=== PATIENT | female | born 1965 | race African-American/Black ===

== ENCOUNTER 2016-10-27 07:40 | Outpatient (CLI) | payer BC, MEDICAID, OTHER ==
[2016-10-27 08:28] LABS: #Basophils 0.1 thou/uL (0.0-0.2); #Eosinphils 0.1 thou/uL (0.0-0.7); #Lymphocytes 2.3 thou/uL (1.20-3.40); #Monocytes 0.5 thou/uL (0.11-0.59); #Neutrophils 3.5 thou/uL (1.40-6.50); %Basophils 1.2 % (0.0-1.0); %Eosinophils 2.1 % (0.0-10.0); %Lymphocytes 35.6 % (21.0-51.0); %Monocytes 7.3 % (0.0-10.0); %Neutrophils 53.7 % (42.0-75.0); Hemoglobin 13.1 g/dL (12.0-16.0); Mean Corpuscular HGB CONC 32.8 g/dL (32.0-36.0); Mean Corpuscular Hemoglobin 28.5 pg (27.0-31.0); Mean Corpuscular Volume 87.1 fl (81.0-99.0); Mean Platelet Volume 7.3 fL (7.4-10.4); Platelet Count 261 thou/uL (130-400); RBC Distribution Width 12.6 % (11.5-14.5); White Blood Cell (WBC) Count 6.4 thou/uL (4.8-10.8)
[2016-10-27 08:35] LABS: Hemoglobin A1c 6.9 % (4.0-6.0)
[2016-10-27 08:48] LABS: ALT (SGPT) 17 U/L (8-55); AST (SGOT) 17 U/L (5-34); Alkaline Phosphatase 90 U/L (40-150); Anion Gap 17 mmol/L (10-20); BUN (Urea Nitrogen) 10 mg/dL (9.8-20.1); Bilirubin, Total 0.5 mg/dL (0.2-1.2); Calc. Creatinine Clearance 0 mL/min (70-130); Calcium 9.9 mg/dL (7.8-10.44); Carbon Dioxide 23 mmol/L (22-29); Chloride 104 mmol/L (98-107); Cholesterol 201 mg/dl (< 200 Desired); Estimated GFR-MDRD Greater than 90; Globulin 3.3 g/dL (2.4-3.5); Glucose 148 mg/dL (70-105); HDL Cholesterol 50 mg/dL (>60 Neg Risk); LDL Cholesterol, Calculated 130 mg/dL; Potassium 3.7 mmol/L (3.5-5.1); Protein, Total 7.3 g/dL (6.0-8.3); Sodium 140 mmol/L (136-145); Triglycerides 104 mg/dL (Less than 150)
[2016-10-27 18:27] LABS: Creatinine, Urine 209.97 mg/dL (47-110); Microalbumin Urine Less than 1.0 mg/dL (0.5-50.0); Microalbumin/Creat Ratio 4.8 mg/g (Less than 30)
== END 2016-10-27 07:41 ==
LOC: MADLABBHPM 07:40
PROVIDERS: ATTEND Family Medicine
DX: E11.9 Type 2 diabetes mellitus without complications (principal)
CPT/HCPCS: 36415; 80053; 80061; 82043; 83036; 85025

== ENCOUNTER 2019-09-29 10:15 | Outpatient (CLI) | payer OTHER ==
--- NOTE | 2019-09-29 10:38 | RAD ---
PA AND LATERAL VIEWS CHEST: Date: 09/29/2019 HISTORY: Atypical chest pain. COMPARISON: 11/08/2015. FINDINGS: The heart size is normal. The aorta is tortuous. No focal areas of consolidation, pneumothoraces, or pleural effusions are seen. No acute osseous abnormalities are identified. IMPRESSION: No radiographic evidence of acute cardiopulmonary process. POS: [facility]
== END 2019-09-29 10:16 | disposition home or self-care (01) ==
LOC: MADRAD 10:15
PROVIDERS: ATTEND Family Medicine
DX: R07.89 Other chest pain (principal)
CPT/HCPCS: 71046

== ENCOUNTER 2021-10-24 17:12 | Emergency (ER) | payer BC ==
[2021-10-24] MEDS ORDERED: Cyclobenzaprine 10 MG TAB ONE (19:58)
[2021-10-24] MEDS ORDERED: Naproxen 500 MG TAB ONE (19:59)
== END 2021-10-24 20:03 | disposition home or self-care (01) ==
LOC: MADERS 17:12
DX: S39.012A Strain of muscle, fascia and tendon of lower back, initial encounter (principal); S39.011A Strain of muscle, fascia and tendon of abdomen, initial encounter; S80.02XA Contusion of left knee, initial encounter; W18.30XA Fall on same level, unspecified, initial encounter; Y99.0 Civilian activity done for income or pay; I10 Essential (primary) hypertension; E11.9 Type 2 diabetes mellitus without complications; F17.210 Nicotine dependence, cigarettes, uncomplicated
CPT/HCPCS: 72131; 72192

== ENCOUNTER 2022-02-25 20:53 | Emergency (ER) | payer BC ==
[2022-02-25] MEDS ORDERED: Sodium Chloride 0.9% 1,000 ML ONE (21:33)
[2022-02-25 21:35] LABS: #Basophils 0.1 thou/uL (0.0-0.2); #Eosinphils 0.1 thou/uL (0.0-0.7); #Lymphocytes 2.1 thou/uL (1.20-3.40); #Monocytes 0.3 thou/uL (0.11-0.59); #Neutrophils 3.4 thou/uL (1.40-6.50); %Basophils 1.9 % (0.0-1.0); %Eosinophils 2.1 % (0.0-10.0); %Monocytes 5.2 % (0.0-10.0); %Neutrophils 56.8 % (42.0-75.0); Hemoglobin 13.9 g/dL (12.0-16.0); Mean Corpuscular HGB CONC 33.1 g/dL (32.0-36.0); Mean Corpuscular Hemoglobin 29.5 pg (27.0-31.0); Mean Platelet Volume 8.3 fL (7.4-10.4); Platelet Count 310 thou/uL (130-400); RBC Distribution Width 12.7 % (11.5-14.5); Red Blood Cell (RBC) Count 4.71 mill/uL (4.20-5.40)
[2022-02-25 21:47] LABS: CO2 Tension (PvCO2) 40.6 mmHg (42.0-51.0)
[2022-02-25 21:48] LABS: Base Excess-Venous 0.3 mmol/L (-2.0 to 3.0); Bicarbonate (HCO3v) 25.2 mmol/L (22.0-28.0); Calcium, Ionized 1.16 mmol/L (1.15-1.33); Chloride 101 mmol/L (98-107); Hemoglobin - Calc 13.7 g/dL (12.0-16.0); Potassium 3.7 mmol/L (3.5-5.1); Sodium 139 mmol/L (138-145); T. Carbon Dioxide 26.4 mmol/L (22.0-28.0); vO2 Saturation-calc 92.1 % (60.0-85.0)
[2022-02-25 21:59] LABS: ALT (SGPT) 24 U/L (8-55); AST (SGOT) 23 U/L (5-34); Albumin 3.8 g/dL (3.5-5.0); Alkaline Phosphatase 106 U/L (40-110); Anion Gap 15 mmol/L (10-20); BUN (Urea Nitrogen) 13 mg/dL (9.8-20.1); Bilirubin, Total 0.5 mg/dL (0.2-1.2); Calc. Creatinine Clearance 0 mL/min (70-130); Calcium 10.1 mg/dL (7.8-10.44); Carbon Dioxide 24 mmol/L (22-29); Chloride 103 mmol/L (98-107); Estimated GFR 74; Globulin 3.4 g/dL (2.4-3.5); Glucose 330 mg/dL (70-105); Magnesium 1.7 mg/dL (1.6-2.6); Potassium 3.8 mmol/L (3.5-5.1); Protein, Total 7.2 g/dL (6.0-8.3); Sodium 138 mmol/L (136-145)
== END 2022-02-25 23:19 | disposition home or self-care (01) ==
LOC: MADERS 20:53
DX: E11.65 Type 2 diabetes mellitus with hyperglycemia (principal); I10 Essential (primary) hypertension; Z79.84 Long term (current) use of oral hypoglycemic drugs
CPT/HCPCS: 36416; 80053; 82330; 82803; 83735; 85025; 99284; J7050

== ENCOUNTER 2022-03-11 15:01 | Emergency (ER) | payer BC ==
[~2022-03-11 15:01] MED LIST: Iopamidol 370 76% 100 ML VIAL ONE
[2022-03-11] MEDS ORDERED: Lactated Ringer's 2,000 ML ONE (15:50)
[2022-03-11] MEDS ORDERED: Morphine 4 MG/ML VIAL ONE ×2 (15:50→17:35)
[2022-03-11] MEDS ORDERED: Dicyclomine 20 MG/2 ML VIAL ONE (15:50)
[2022-03-11] MEDS ORDERED: Ondansetron PF 4 MG/2 ML Vial ONE (15:50)
[2022-03-11 16:10] LABS: Eosinophils 1 % (0-10); Hemoglobin 16.2 g/dL (12.0-16.0); Lymphocytes 9 % (21-51); MDiff Complete? YES; Mean Corpuscular HGB CONC 32.1 g/dL (32.0-36.0); Mean Corpuscular Hemoglobin 28.4 pg (27.0-31.0); Mean Corpuscular Volume 88.5 fl (78.0-98.0); Monocytes 3 % (0-10); Neutrophil 87 % (42-75); Platelet Count 422 10x3/uL (130-400); Platelet Morphology Comment Appears Increased; RBC Distribution Width 12.3 % (11.5-14.5); RBC Morphology Normal; Red Blood Cell (RBC) Count 5.69 mill/uL (4.20-5.40); White Blood Cell (WBC) Count 11.9 10x3/uL (4.8-10.8)
[2022-03-11 16:13] LABS: ALT (SGPT) 18 U/L (8-55); AST (SGOT) 20 U/L (5-34); Albumin 4.4 g/dL (3.5-5.0); Alkaline Phosphatase 111 U/L (40-110); Anion Gap 18 mmol/L (10-20); BUN (Urea Nitrogen) 14 mg/dL (9.8-20.1); CK (CPK) 117 U/L (29-168); Calc. Creatinine Clearance 0 mL/min (70-130); Calcium 11.3 mg/dL (7.8-10.44); Carbon Dioxide 28 mmol/L (22-29); Chloride 94 mmol/L (98-107); Estimated GFR 65; Globulin 4.1 g/dL (2.4-3.5); Glucose 286 mg/dL (70-105); Lipase 11 U/L (8-78); Magnesium 1.9 mg/dL (1.6-2.6); Protein, Total 8.5 g/dL (6.0-8.3); Sodium 136 mmol/L (136-145)
[2022-03-11] MEDS ORDERED: Ondansetron PF 4 MG/2 ML Vial IVP PRN (21:15)
[2022-03-11] MEDS ORDERED: Ondansetron ODT 4 MG TAB SL PRN (21:15)
[2022-03-11] MEDS ORDERED: Lactated Ringer's 1,000 ML IV SCH (21:15)
== END 2022-03-11 20:01 | disposition short-term general hospital (02) ==
LOC: MADERS 15:01
DX: K56.609 Unspecified intestinal obstruction, unspecified as to partial versus complete obstruction (principal); E86.0 Dehydration; E11.65 Type 2 diabetes mellitus with hyperglycemia; R00.0 Tachycardia, unspecified; I10 Essential (primary) hypertension; Z79.84 Long term (current) use of oral hypoglycemic drugs; Z79.899 Other long term (current) drug therapy
CPT/HCPCS: 36416; 71045; 74177; 80053; 82550; 83605; 83690; 83735; 84443; 84484; 85025; 93005; 94760; 96372; 96374; 96375; 96376; J2270; J2405; J7120; Q9967

== ENCOUNTER 2022-07-16 09:43 | Emergency (ER) | payer OTHER ==
[2022-07-16] MEDS ORDERED: Ketorolac Tromethamine 60 MG/2 ML VIAL ONE (10:12)
== END 2022-07-16 11:50 | disposition home or self-care (01) ==
LOC: MADERS 09:43
DX: M54.50 Low back pain, unspecified (principal); E11.9 Type 2 diabetes mellitus without complications; I10 Essential (primary) hypertension; V40.0XXA Car driver injured in collision with pedestrian or animal in nontraffic accident, initial encounter; Z85.038 Personal history of other malignant neoplasm of large intestine; Z79.84 Long term (current) use of oral hypoglycemic drugs; Z79.4 Long term (current) use of insulin; Z79.899 Other long term (current) drug therapy
CPT/HCPCS: 72100; 96372; J1885

== ENCOUNTER 2022-10-13 04:10 | Emergency (ER) | payer OTHER ==
[2022-10-13] MEDS ORDERED: Dicyclomine 20 MG/2 ML VIAL ONE (04:48)
[2022-10-13 04:57] LABS: #Basophils 0.1 thou/uL (0.0-0.2); #Eosinphils 0.1 thou/uL (0.0-0.7); #Lymphocytes 1.7 thou/uL (1.20-3.40); #Monocytes 0.5 thou/uL (0.11-0.59); #Neutrophils 4.5 thou/uL (1.40-6.50); %Basophils 1.3 % (0.0-1.0); %Eosinophils 1.8 % (0.0-10.0); %Lymphocytes 24.4 % (21.0-51.0); %Monocytes 7.6 % (0.0-10.0); %Neutrophils 64.9 % (42.0-75.0); Hemoglobin 13.7 g/dL (12.0-16.0); Mean Corpuscular HGB CONC 32.5 g/dL (32.0-36.0); Mean Corpuscular Hemoglobin 29.6 pg (27.0-31.0); Mean Corpuscular Volume 91.2 fl (78.0-98.0); Mean Platelet Volume 8.9 fL (7.4-10.4); Platelet Count 302 10x3/uL (130-400); RBC Distribution Width 13.6 % (11.5-14.5); Red Blood Cell (RBC) Count 4.63 mill/uL (4.20-5.40)
[2022-10-13 05:14] LABS: ALT (SGPT) 19 U/L (8-55); AST (SGOT) 19 U/L (5-34); Alkaline Phosphatase 93 U/L (40-110); Anion Gap 14 mmol/L (10-20); BUN (Urea Nitrogen) 8 mg/dL (9.8-20.1); Bilirubin, Total 0.5 mg/dL (0.2-1.2); Calc. Creatinine Clearance 0 mL/min (70-130); Calcium 10.3 mg/dL (7.8-10.44); Carbon Dioxide 26 mmol/L (22-29); Chloride 102 mmol/L (98-107); Estimated GFR 77; Globulin 3.1 g/dL (2.4-3.5); Glucose 246 mg/dL (70-105); Lipase 8 U/L (8-78); Potassium 3.6 mmol/L (3.5-5.1); Protein, Total 7.1 g/dL (6.0-8.3); Sodium 138 mmol/L (136-145)
== END 2022-10-13 05:09 | disposition short-term general hospital (02) ==
LOC: MADERS 04:10
DX: R10.32 Left lower quadrant pain (principal); E11.9 Type 2 diabetes mellitus without complications; I10 Essential (primary) hypertension; Z79.899 Other long term (current) drug therapy; Z79.84 Long term (current) use of oral hypoglycemic drugs
CPT/HCPCS: 36415; 71045; 80053; 83605; 83690; 85025; 96372

== ENCOUNTER 2022-11-22 20:26 | Emergency (ER) | payer OTHER ==
[2022-11-22] MEDS ORDERED: Ibuprofen 600 MG TAB ONE (21:30)
== END 2022-11-22 21:56 | disposition home or self-care (01) ==
LOC: MADERS 20:26
DX: S39.012A Strain of muscle, fascia and tendon of lower back, initial encounter (principal); I10 Essential (primary) hypertension; E11.9 Type 2 diabetes mellitus without complications; V43.53XA Car driver injured in collision with pick-up truck in traffic accident, initial encounter; Z79.84 Long term (current) use of oral hypoglycemic drugs; Z79.899 Other long term (current) drug therapy; Z79.4 Long term (current) use of insulin
CPT/HCPCS: 72100

== ENCOUNTER 2023-07-27 18:34 | Emergency (ER) | payer BC | END 2023-07-27 19:00 | disposition left against medical advice (07) | LOC: MADERS 18:34 | DX: Z53.21 Procedure and treatment not carried out due to patient leaving prior to being seen by health care provider (principal) ==

== ENCOUNTER 2023-07-28 02:09 | Emergency (ER) | payer BC, OTHER ==
[2023-07-28] MEDS ORDERED: Acetaminophen 500 MG TAB ONE (02:41)
[2023-07-28] MEDS ORDERED: Ketorolac Tromethamine 30 MG (1 mL) VIAL ONE (02:41)
[2023-07-28] MEDS ORDERED: Lidocaine 4% Patch ONE (02:41)
== END 2023-07-28 03:03 | disposition home or self-care (01) ==
LOC: MADERS 02:09
DX: M54.50 Low back pain, unspecified (principal); E11.9 Type 2 diabetes mellitus without complications; I10 Essential (primary) hypertension; Z79.84 Long term (current) use of oral hypoglycemic drugs; Z79.899 Other long term (current) drug therapy
CPT/HCPCS: 96372; 99283; J1885